=== PATIENT | female | born 1990 ===

== ENCOUNTER 2016-07-28 11:28 | Inpatient (IN) | payer MEDICAID ==
[2016-07-28] MEDS ORDERED: Sodium Chloride 0.9% 1,000 ML IV STA ×2 (11:52→12:33)
--- NOTE | 2016-07-28 12:02 | ED PDOC ---
HPI: SOB/CHF/COPD Time Seen by Provider: 07/28/16 11:43 Chief Complaint (Nursing): Shortness Of Breath Chief Complaint (Provider): Shortness Of Breath History Per: Patient History/Exam Limitations: no limitations Onset/Duration Of Symptoms: Hrs Current Symptoms Are (Timing): Still Present Additional Complaint(s): 25 y/o female with a past medical history of diabetes who presents to the emergency department with a complaint of shortness of breath since this morning. Associated with generalized weakness and frequent urination. Denies chest pain, cough, runny nose, nausea, abdominal pain, vomiting, diarrhea, fever , and leg pain. Of note, patient states she treats diabetes with Novolog insulin but has not used insulin for the last 3 months because her insurance was terminated. Reports she was in ICU in March. PMD: Dr. Mally Alcaraz MD Past Medical History Reviewed: Historical Data, Nursing Documentation, Vital Signs Vital Signs: Last Vital Signs Temp 98.1 F 07/28/16 11:37 Pulse 112 H 07/28/16 11:37 Resp 22 07/28/16 11:37 BP 111/69 07/28/16 11:37 Pulse Ox 98 07/28/16 12:05 - Medical History PMH: Diabetes Denies: HIV, Chronic Kidney Disease - Surgical History Surgical History: Appendectomy (1995) - Family History Family History: States: Unknown Family Hx - Immunization History Hx Tetanus Toxoid Vaccination: No Hx Influenza Vaccination: No Hx Pneumococcal Vaccination: No - Home Medications Home Medications: Ambulatory Orders Medication Instructions Recorded Insulin Aspart [Novolog] 2 units SC TID #100 ml 04/27/16 Insulin Detemir [Levemir] 5 unit SC QAM #100 unit 04/27/16 Insulin Detemir [Levemir] 7 unit SC QPM #100 unit 04/27/16 - Allergies Allergies/Adverse Reactions: Allergies Allergy/AdvReac Type Severity Reaction Status Date / Time No Known Allergies Allergy Verified 07/28/16 11:37 Review of Systems ROS Statement: Except As Marked, All Systems Reviewed And Found Negative Constitutional: Positive for: Weakness (generalized). Negative for: Fever ENT: Negative for: Nose Discharge Cardiovascular: Negative for: Chest Pain Respiratory: Positive for: Shortness of Breath. Negative for: Cough Gastrointestinal: Negative for: Nausea, Vomiting, Abdominal Pain, Diarrhea Genitourinary Female: Positive for: Frequency Musculoskeletal: Negative for: Leg Pain Physical Exam - Reviewed Nursing Documentation Reviewed: Yes Vital Signs Reviewed: Yes - Physical Exam Appears: Positive for: Non-toxic, Uncomfortable Head Exam: Positive for: ATRAUMATIC, NORMOCEPHALIC Skin: Positive for: Normal Color, Warm, Dry Eye Exam: Positive for: Normal appearance. Negative for: Conjunctival injection ENT: Positive for: Normal ENT Inspection. Negative for: Pharyngeal Erythema Cardiovascular/Chest: Positive for: Regular Rate, Rhythm. Negative for: Murmur Respiratory: Positive for: Normal Breath Sounds. Negative for: Accessory Muscle Use, Respiratory Distress Gastrointestinal/Abdominal: Positive for: Normal Exam, Soft. Negative for: Tenderness Extremity: Positive for: Normal ROM. Negative for: Pedal Edema, Swelling Neurologic/Psych: Positive for: Alert, Oriented - Laboratory Results Result Diagrams: 07/28/16 12:00 07/28/16 12:00 Interpretation Of Abn Labs: 7.06 vbg ph, AG 28. elevated glucose - ECG ECG: Positive for: Interpreted By Me, Viewed By Me ECG Rhythm: Positive for: Sinus Tachycardia O2 Sat by Pulse Oximetry: 98 (RA) Pulse Ox Interpretation: Normal - Radiology X-Ray: Read By Radiologist X-Ray Interpretation: No Acute Disease - Progress ED Course And Treament: 1411: Stable. AAOx3. Will admit ICU. DKA. Dr. Varela aware and will admit. Dr. Menjivar aware and will admit. Pt. not septic despite lactate elevation. Is likely dka related. - Critical Care Total Time (In Min): 30 Documented Critical Care: Time excludes all time spent performint seperately billable procedures Medical Decision Making Medical Decision Making: Time: 11:43 Initial impression: Initial plan: --Venous Blood Gas Shock --COMP Metabolic Panel --Lipase Stat --Troponin I Stat --ED Urine (POC) --Urine DIP --CBC w/ differential --Partial Thromboplastin Time (COAG) --Prothrombin time (COAG) --Chest Portable (RAD) --Sodium Chloride 1,000 ml IV 1,000 mls/hr --Zofran 4 mg IV --Blood Culture Stat --Urine Culture Stat --Urinalysis Stat --AccuCheck: 493 --Revaluation Scribe Attestation: Documented by Deisi Mason, acting as a scribe for Nick Sears MD. Provider Scribe Attestation: All medical record entries made by the Scribe were at my direction and personally dictated by me. I have reviewed the chart and agree that the record accurately reflects my personal performance of the history, physical exam, medical decision making, and the department course for this patient. I have also personally directed, reviewed, and agree with the discharge instructions and disposition. Disposition - Clinical Impression Clinical Impression: DKA (diabetic ketoacidosis) - Patient ED Disposition Is Patient to be Admitted: Yes Doctor Will See Patient In The: Hospital Counseled Patient/Family Regarding: Studies Performed, Diagnosis - Disposition Disposition Time: 14:12 Condition: SERIOUS - Pt Status Changed To: Hospital Disposition Of: Inpatient - Admit Certification Admit to Inpatient:: After my assessment, the patient will require hospitalization for at least two midnights. This is because of the severity of symptoms shown, intensity of services needed, and/or the medical risk in this patient being treated as an outpatient. - POA Present On Arrival: Poor Glycemic Control
[2016-07-28 12:24] LABS: BASO % 0.7 % (0.0-2.0); EOS % 0.2 % (0.0-4.0); HEMATOCRIT 40.6 % (34.0-47.0); LYMPH % 39.4 % (20.0-40.0); MEAN CELL VOLUME 89.1 fl (81.0-99.0); MEAN CORPUSCULAR HEMOGLOBIN 30.1 pg (27.0-31.0); MEAN CORPUSCULAR HGB CONC 33.7 g/dL (33.0-37.0); MONO # 0.3 K/uL (0.0-0.8); MONO % 5.5 % (0.0-10.0); NEUT # 2.8 K/uL (1.8-7.0); NEUT % 54.2 % (50.0-75.0); NRBC % 0.2 % (0.0-0.0); RED CELL DISTRIBUTION WIDTH 12.4 % (11.5-14.5); WHITE BLOOD COUNT 5.2 K/uL (4.8-10.8)
[2016-07-28 12:29] LABS: VENOUS BLOOD GAS BASE EXCESS -17.4 mmol/L (0.0-2.0); VENOUS BLOOD GAS PCO2 44 mmHg (40-60); VENOUS BLOOD PH 7.06 (7.32-7.43)
[2016-07-28] MEDS ORDERED: Insulin Regular 100 units/ml IV STA (12:33)
[2016-07-28] MEDS ORDERED: Glucagon Recombinant 1 mg Inj IM PRN (12:33)
[2016-07-28] MEDS ORDERED: Dextrose 50% SYRINGE Inj (50 ml) IV PRN (12:33)
[2016-07-28 12:41] LABS: ALKALINE PHOSPHATASE 200 U/L (38-126); ALT/SGPT 28 U/L (9-52); AST/SGOT 36 U/L (14-36); BILIRUBIN,TOTAL 0.5 mg/dl (0.2-1.3); BLOOD UREA NITROGEN 15 mg/dl (7-17); CALCIUM 9.7 mg/dL (8.4-10.2); CARBON DIOXIDE 13 mmol/L (22-30); CHLORIDE 95 mmol/L (98-107); GFR AFRICAN-AMERICAN > 60; LIPASE 126 U/L (23-300); POTASSIUM 4.2 MMOL/L (3.6-5.0); SODIUM 136 mmol/l (132-148); TOTAL PROTEIN 7.2 G/DL (6.3-8.2)
[2016-07-28 12:44] LABS: GLUCOSE,RANDOM 555 mg/dL (65-105)
[2016-07-28 12:52] LABS: PARTIAL THROMBOPLASTIN TIME 23.9 SECONDS (23.3-32.5)
[2016-07-28] MEDS ORDERED: Insulin Regular 100 units/ml ONE (13:07)
[2016-07-28 13:29] LABS: RBC URINE 8 /hpf (0-3); URINE BACTERIA FEW (<OCC); URINE BILIRUBIN NEGATIVE (NEGATIVE); URINE BLOOD NEGATIVE (NEGATIVE); URINE COLOR YELLOW (YELLOW); URINE GLUCOSE (UA) >=500 mg/dL (Normal); URINE KETONE 80 mg/dL (NEGATIVE); URINE LEUKOCYTE ESTERASE TRACE Leu/uL (Negative); URINE PROTEIN NEGATIVE (NEGATIVE); URINE UROBILINOGEN 0.2-1.0 mg/dL (0.2-1.0); WBC URINE 12 /hpf (0-5)
--- NOTE | 2016-07-28 13:40 | RAD ---
HISTORY: dyspnea COMPARISON: 04/26/2016. FINDINGS: LUNGS: No active pulmonary disease. PLEURA: No significant pleural effusion identified, no pneumothorax apparent. CARDIOVASCULAR: Normal. OSSEOUS STRUCTURES: No significant abnormalities. VISUALIZED UPPER ABDOMEN: Normal. OTHER FINDINGS: None. IMPRESSION: No active disease.
[2016-07-28] MEDS: Potassium Chl 20 mEq in NS 1,000 ML IV SCH ×2 (15:21→22:15)
[2016-07-28 16:27] LABS: BLOOD UREA NITROGEN 13 mg/dl (7-17); CALCIUM 8.5 mg/dL (8.4-10.2); CARBON DIOXIDE 22 mmol/L (22-30); CHLORIDE 104 mmol/L (98-107); GFR AFRICAN-AMERICAN > 60; GLUCOSE,RANDOM 252 mg/dL (65-105); MAGNESIUM 1.4 MG/DL (1.6-2.3); PHOSPHOROUS 2.2 mg/dl (2.5-4.5); POTASSIUM 3.7 MMOL/L (3.6-5.0); SODIUM 139 mmol/l (132-148)
[2016-07-28 16:55] LABS: THYROID STIMULATING HORMONE 0.42 mIU/ML (0.46-4.68)
[2016-07-28] MEDS: Magnesium Oxide 400 mg Tab UD PO SCH (18:45)
[2016-07-28] MEDS ORDERED: Insulin Detemir 100 Units/ml Inj SC STA (18:47)
[2016-07-28 19:12] VITALS: BMI 24.7
--- NOTE | 2016-07-28 20:47 | CP.PCM.HP ---
History of Present Illness - History of Present Illness History of Present Illness: CC: SOB History of Present Illness: 25 y/o female with a past medical history of diabetes who presents to the emergency department with a complaint of shortness of breath since this morning. Associated with generalized weakness and frequent urination. Denies chest pain, cough, runny nose, nausea, abdominal pain, vomiting, diarrhea, fever , and leg pain. Patient states she treats diabetes with Novolog insulin but has not used insulin for the last 3 months because her insurance was terminated. Reports she was in ICU in March. Present on Admission - Present on Admission Any Indicators Present on Admission: Yes History of DVT/PE: No History of Uncontrolled Diabetes: Yes Urinary Catheter: No Decubitus Ulcer Present: No Review of Systems - Review of Systems All systems: reviewed and no additional remarkable complaints except Past Patient History - Past Medical History & Family History Past Medical History?: Yes Past Family History: Reviewed and not pertinent - Past Social History Smoking Status: Never Smoked Alcohol: Social Drugs: Denies - CARDIAC Hx Cardiac Disorders: No - PULMONARY Hx Respiratory Disorders: No - NEUROLOGICAL Hx Neurological Disorder: No - HEENT Hx HEENT Problems: Yes (blurry vision on right eye since 4 days ago) - RENAL Hx Chronic Kidney Disease: No - ENDOCRINE/METABOLIC Hx Endocrine Disorders: Yes Hx Diabetes Mellitus Type 1: Yes (H/O DKA ) - HEMATOLOGICAL/ONCOLOGICAL Hx Human Immunodeficiency Virus (HIV): No - INTEGUMENTARY Hx Dermatological Problems: No - MUSCULOSKELETAL/RHEUMATOLOGICAL Hx Falls: No - GASTROINTESTINAL Hx Gastrointestinal Disorders: No - GENITOURINARY/GYNECOLOGICAL Hx Genitourinary Disorders: No - PSYCHIATRIC Hx Substance Use: No - SURGICAL HISTORY Hx Appendectomy: Yes (1995) - ANESTHESIA Hx Anesthesia: Yes Hx Anesthesia Reactions: No Hx Malignant Hyperthermia: No Meds Allergies/Adverse Reactions: Allergies Allergy/AdvReac Type Severity Reaction Status Date / Time No Known Allergies Allergy Verified 07/28/16 11:37 Physical Exam - Constitutional Appears: Well, No Acute Distress - Head Exam Head Exam: ATRAUMATIC, NORMAL INSPECTION, NORMOCEPHALIC - Eye Exam Eye Exam: EOMI, Normal appearance, PERRL Pupil Exam: NORMAL ACCOMODATION, PERRL - ENT Exam ENT Exam: Mucous Membranes Moist, Normal Exam - Neck Exam Neck exam: Positive for: Full Rom, Normal Inspection - Respiratory Exam Respiratory Exam: Clear to Auscultation Bilateral, NORMAL BREATHING PATTERN - Cardiovascular Exam Cardiovascular Exam: REGULAR RHYTHM, +S1, +S2 - GI/Abdominal Exam GI & Abdominal Exam: Normal Bowel Sounds, Soft. absent: Tenderness - Extremities Exam Extremities exam: Positive for: normal capillary refill, normal inspection - Back Exam Back exam: NORMAL INSPECTION - Neurological Exam Neurological exam: Abnormal Gait, Alert, CN II-XII Intact, Normal Gait, Oriented x3, Reflexes Normal - Psychiatric Exam Psychiatric exam: Normal Affect, Normal Mood - Skin Skin Exam: Dry, Intact, Normal Color, Warm Results - Vital Signs Recent Vital Signs: Last Vital Signs Temp 98.2 F 07/28/16 20:10 Pulse 87 07/28/16 20:10 Resp 17 07/28/16 20:10 BP 102/54 L 07/28/16 20:10 Pulse Ox 99 07/28/16 20:10 - Labs Result Diagrams: 07/28/16 12:00 07/28/16 16:00 Labs: Laboratory Results - last 24 hr 07/28/16 07/28/16 07/28/16 15:09 16:00 16:39 Sodium 139 Potassium 3.7 Chloride 104 Carbon Dioxide 22 Anion Gap 16 BUN 13 Creatinine 0.4 L Est GFR ( Amer) > 60 Est GFR (Non-Af Amer) > 60 POC Glucose (mg/dL) 259 H 223 H Random Glucose 252 H Lactic Acid 2.5 H Calcium 8.5 Phosphorus 2.2 L Magnesium 1.4 L TSH 3rd Generation 0.42 L 07/28/16 18:41 Sodium Potassium Chloride Carbon Dioxide Anion Gap BUN Creatinine Est GFR ( Amer) Est GFR (Non-Af Amer) POC Glucose (mg/dL) 188 H Random Glucose Lactic Acid Calcium Phosphorus Magnesium TSH 3rd Generation Assessment & Plan (1) Metabolic acidosis Assessment and Plan: Dehydration, Hyperglycemia Mix Lactic Acidosis and DKA Admit to ICU DKA Protocol with Insulin and IVF with Electrolyte Monitoring Status: Acute Priority: High
[2016-07-28] MEDS ORDERED: Insulin Detemir 100 Units/ml Inj SC SCH ×2 (22:00)
[2016-07-29] MEDS: Potassium Chl 20 mEq in NS 1,000 ML IV SCH (05:00)
[2016-07-29 06:36] LABS: HEMATOCRIT 37.2 % (34.0-47.0); MEAN CELL VOLUME 88.6 fl (81.0-99.0); MEAN CORPUSCULAR HEMOGLOBIN 29.5 pg (27.0-31.0); MEAN CORPUSCULAR HGB CONC 33.3 g/dL (33.0-37.0); RED CELL DISTRIBUTION WIDTH 12.4 % (11.5-14.5); WHITE BLOOD COUNT 5.7 K/uL (4.8-10.8)
[2016-07-29 06:42] LABS: ALB/GLOB RATIO 0.9 (1.0-2.1); ALKALINE PHOSPHATASE 95 U/L (38-126); ALT/SGPT 29 U/L (9-52); AST/SGOT 29 U/L (14-36); BILIRUBIN,TOTAL 0.3 mg/dl (0.2-1.3); BLOOD UREA NITROGEN 11 mg/dl (7-17); CALCIUM 8.4 mg/dL (8.4-10.2); CARBON DIOXIDE 27 mmol/L (22-30); CHLORIDE 107 mmol/L (98-107); GFR AFRICAN-AMERICAN > 60; GLUCOSE,RANDOM 96 mg/dL (65-105); POTASSIUM 3.2 MMOL/L (3.6-5.0); SODIUM 143 mmol/l (132-148); TOTAL PROTEIN 5.7 G/DL (6.3-8.2)
[2016-07-29] MEDS ORDERED: Insulin Lispro (humaLOG) 100 Units/ml Inj SC SCH (07:30)
[2016-07-29] MEDS ORDERED: Potassium Chloride 20 mEq ER Tab PO ONE (07:36)
[2016-07-29] MEDS: Magnesium Oxide 400 mg Tab UD PO SCH (09:07)
[2016-07-29] MEDS: Potassium Ch 20mEq in D5-1/2NS 1,000 ML IV SCH (10:46)
[2016-07-29] MEDS: Insulin Lispro (humaLOG) 100 Units/ml Inj SC SCH ×5 (12:16→21:30)
--- NOTE | 2016-07-29 15:38 | CON ---
DATE: 07/29/2016 ICU room 426 HISTORY OF PRESENT ILLNESS: This is a 25-year-old type 1 insulin-dependent diabetic, who apparently ran out of her insulin because of insurance constraints, and has now been admitted in diabetic ketoac idosis and dehydration, and is being referred now for diabetic evaluation and management. PAST MEDICAL HISTORY: As mentioned above, history of type 1 insulin-dependent diabetes since child od, and has been on different insulin injections because of insurance changes, and currently has been on Levemir given as 5 units in the morning and 7 units at bedtime, with NovoLog given at a variable dose of 2-4 units t.i.d. with meals, depending on her meal portions. FAMILY HISTORY: Positive for diabetes and hypertension. SOCIAL HISTORY: The patient has supportive family. No known substance use. REVIEW OF SYSTEMS: As mentioned above, admits to generalized body weakness, with easy fatigability a nd tiredness, and suboptimal energy level. Also admits to episodic dizziness and lightheadedness, wo rse on the day of admission. No chest pains or palpitations, but admits to progressive shortness of breath, especially on exertion. Her oral intake has been variable with nausea, dyspepsia, and episod ic vomiting episodes. Also admits to marked polyuria, nocturia, polydipsia, and about 10 pounds or s o weight loss. PHYSICAL EXAMINATION: GENERAL: female, in no apparent distress. VITAL SIGNS: Blood pressure of 140/80, pulse of 70 beats per minute and regular, temperature 98, res pirations 20. Height is 5 foot 5 inches, weight is 149 pounds. HEENT: Head normocephalic. Eyes anicteric, with pink conjunctivae. Fundoscopy not possible at this time. Ears, nose, and throat otherwise normal. NECK: Supple. Thyroid gland is normal size. No carotid bruits. No cervical adenopathy. CARDIOPULMONARY: Some adynamic precordium. S1, S2 is rapid and regular. LUNGS: Clear to auscultation. ABDOMEN: Flat, soft, with positive bowel sounds. EXTREMITIES: No peripheral edema. Pulses are +2 bilaterally. LABORATORY DATA: Her chemistries showed BUN of 15, sodium 136, potassium 4.2, chloride 95, CO2 was 1 3, glucose 555, and creatinine 0.5. Hemoglobin of 13.7, hematocrit of 40. ASSESSMENT: This is a 25-year-old female with uncontrolled and decompensated type 1 insulin-dependen t diabetes, presenting here with diabetic ketoacidosis and dehydration, and is also related to drug o mission from insurance constraints, as noted thereof. 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 We will lower the basal insulin to Lev devan given as 20 units subQ at bedtime daily, to start tonight. We will also lower the Humalog to 6 units subQ t.i.d. before meals, to start at lunchtime today as ordered. We will modify the coverage scale to a very low dose algorithm, modified accordingly using Humalog insulin as ordered, and this w ill be done before meals and at bedtime as given. A hemoglobin A1c will be done to confirm her prior glycemic control, and baseline thyroid function studies will be ordered. We will obtain serial chem istries and supplement accordingly as needed. We will also continue the vigorous IV hydration to rep lenish the lost fluid and electrolytes accordingly. We will consult our diabetic nurse educator to bridget lyn diabetic education and dietary instructions, also with our certified home health aide for healthier food c hoices as noted. We will follow and advise accordingly. Rosalba Puri MD cc: [id number] TT: 07/29/2016 15:37:44 Confirmation # [id number] Dictation # [id number] vn
[2016-07-29 16:15] LABS: BLOOD UREA NITROGEN 11 mg/dl (7-17); CALCIUM 8.3 mg/dL (8.4-10.2); CARBON DIOXIDE 26 mmol/L (22-30); CHLORIDE 104 mmol/L (98-107); GFR AFRICAN-AMERICAN > 60; GLUCOSE,RANDOM 159 mg/dL (65-105); POTASSIUM 4.3 MMOL/L (3.6-5.0); SODIUM 140 mmol/l (132-148)
[2016-07-29] MEDS: Alum-Mag Hydrox-Simethicone Susp (30 mL) PO PRN (19:42)
[2016-07-29] MEDS ORDERED: Insulin Detemir 100 Units/ml Inj SC SCH (22:00)
--- NOTE | 2016-07-29 23:26 | CP.PCM.PN ---
Subjective - Date & Time of Evaluation Date of Evaluation: 07/29/16 Time of Evaluation: 12:25 - Subjective Subjective: States feeling better. Objective - Vital Signs/Intake and Output Vital Signs (last 24 hours): Temp Pulse Resp BP Pulse Ox 98.3 F 85 17 110/67 99 07/29/16 16:00 07/29/16 16:00 07/29/16 16:00 07/29/16 16:00 07/29/16 16:00 Intake and Output: 07/29/16 07/30/16 18:59 06:59 Intake Total 120 180 Balance 120 180 - Medications Medications: Current Medications Al Hydrox/Mg Hydrox/Simethicone (Maalox Plus 30 Ml) 30 ml PO Q6 PRN PRN Reason: Indigestion / Heartburn Last Admin: 07/29/16 19:42 Dose: 30 ml Potassium Chloride/Dextrose/Sod Cl (Potassium Chl 20 Meq In D5-1/2ns) 1,000 mls @ 60 mls/hr IV .[id number] [facility] Stop: 07/30/16 10:31 Last Admin: 07/29/16 10:46 Dose: 60 mls/hr Insulin Detemir (Levemir) 20 units SC HS [facility] Last Admin: 07/29/16 22:10 Dose: 20 units Insulin Human Lispro (Humalog) 6 units SC AC [facility] Last Admin: 07/29/16 17:48 Dose: 6 u Insulin Human Lispro (Humalog) 0 units SC ACHS [facility] PRN Reason: Protocol Last Admin: 07/29/16 17:02 Dose: Not Given Magnesium Oxide (Mag-Ox) 400 mg PO DAILY [facility] Last Admin: 07/29/16 09:07 Dose: 400 mg - Labs Labs: 07/29/16 05:30 07/29/16 15:30 PT 9.7 SECONDS (9.6-11.2) 07/28/16 12:00 INR 0.93 (0.92-1.08) 07/28/16 12:00 APTT 23.9 SECONDS (23.3-32.5) 07/28/16 12:00 - Constitutional Appears: Well - Head Exam Head Exam: ATRAUMATIC, NORMAL INSPECTION, NORMOCEPHALIC - Eye Exam Eye Exam: EOMI, Normal appearance, PERRL Pupil Exam: NORMAL ACCOMODATION, PERRL - ENT Exam ENT Exam: Mucous Membranes Moist, Normal Exam - Neck Exam Neck Exam: Full ROM, Normal Inspection. absent: Lymphadenopathy - Respiratory Exam Respiratory Exam: Clear to Ausculation Bilateral, NORMAL BREATHING PATTERN - Cardiovascular Exam Cardiovascular Exam: REGULAR RHYTHM, +S1, +S2. absent: Murmur - GI/Abdominal Exam GI & Abdominal Exam: Soft, Normal Bowel Sounds. absent: Tenderness - Extremities Exam Extremities Exam: Full ROM, Normal Capillary Refill, Normal Inspection. absent : Joint Swelling, Pedal Edema - Back Exam Back Exam: NORMAL INSPECTION - Neurological Exam Neurological Exam: Alert, Awake, CN II-XII Intact, Normal Gait, Oriented x3 - Psychiatric Exam Psychiatric exam: Normal Affect, Normal Mood - Skin Skin Exam: Dry, Intact, Normal Color, Warm Assessment and Plan (1) Metabolic acidosis Assessment & Plan: Improving Dehydration, Hyperglycemia Mix Lactic Acidosis and DKA Admit to ICU DKA Protocol with Insulin and IVF with Electrolyte Monitoring Status: Acute
[2016-07-30] MEDS: Alum-Mag Hydrox-Simethicone Susp (30 mL) PO PRN (02:15)
[2016-07-30] MEDS: Potassium Ch 20mEq in D5-1/2NS 1,000 ML IV SCH (04:34)
[2016-07-30 05:23] VITALS: O2SAT 99
[2016-07-30 07:30] LABS: ALB/GLOB RATIO 0.9 (1.0-2.1); ALKALINE PHOSPHATASE 97 U/L (38-126); ALT/SGPT 24 U/L (9-52); AST/SGOT 37 U/L (14-36); BILIRUBIN,TOTAL 0.5 mg/dl (0.2-1.3); BLOOD UREA NITROGEN 10 mg/dl (7-17); CALCIUM 8.2 mg/dL (8.4-10.2); CARBON DIOXIDE 23 mmol/L (22-30); CHLORIDE 104 mmol/L (98-107); GFR AFRICAN-AMERICAN > 60; GLUCOSE,RANDOM 196 mg/dL (65-105); PHOSPHOROUS 1.9 mg/dl (2.5-4.5); POTASSIUM 4.1 MMOL/L (3.6-5.0); SODIUM 139 mmol/l (132-148); TOTAL PROTEIN 5.9 G/DL (6.3-8.2)
[2016-07-30] MEDS: Insulin Lispro (humaLOG) 100 Units/ml Inj SC SCH ×4 (07:40→12:48)
[2016-07-30] MEDS: Magnesium Oxide 400 mg Tab UD PO SCH (08:33)
--- NOTE | 2016-07-30 13:57 | PN ---
DATE: 07/29/2016 CRITICAL CARE PROGRESS NOTE The patient is in ICU, bed 426. TIME SPENT: 25 minutes. Seen and evaluated at the bedside. Events since admission reviewed. FAMILY MEDICAL, PAST MEDICAL, SURGICAL, FAMILY, SOCIAL HISTORY: Reviewed and remain unchanged. A 25-year-old female with type 1 diabetes, admitted with DKA noncompliant with insulin prior to admis mike, status post insulin drip anion gap resolved, improved control of blood sugar, uneventful overni ght. This morning, alert, awake, follows commands appropriately. Tolerating p.o. feeds. PHYSICAL EXAMINATION: VITAL SIGNS: Temperature 97.9, heart rate 85 regular, respiratory rate 15, blood pressure 94/70. HEAD, EYES, EARS, NOSE, AND THROAT: Unremarkable. NECK: Supple. CHEST: Bilateral breath sounds. Clear to auscultation. HEART: Rhythm regular. S1, S2 normal intensity. No S3, S4 gallop. No audible murmur. ABDOMEN: Bowel sounds present, soft. Liver and spleen not palpable. Bladder not distended. EXTREMITIES: Unremarkable. NEUROLOGIC: Nonfocal. LABORATORY DATA: WBC 5.7, hemoglobin 12.4, hematocrit 37.2, platelet count at 266. PT 9.7, INR 0.93 , PTT 23.9. SMA-7: Sodium 143, potassium 3.2, chloride 107, CO2 of 27, blood urea nitrogen 11, crea tinine 0.5, glucose 53. Lactic acid 2.5, magnesium 2.2. Urine exam: RBC 8, bacteria few, WBC 12. Microbiology: No growth reported. Chest x-ray: Unremarkable. IMPRESSION: 1. Status post diabetic ketoacidosis. 2. Hypokalemic, supplement potassium. 3. Diabetes mellitus. Noncompliant with insulin. Continue Levemir 22 units subQ at night, bolus in sulin with a meal, lispro 8 units. Adjust the dose as needed for optimal control of blood sugar. Can be transferred to a regular floor. Supplement potassium. Discussed with primary medical doctor. Joe Menjivar MD cc: [id number] TT: 07/29/2016 11:31:56 Confirmation # [id number] Dictation # [id number] olga 07/30/2016 12:57:08
[2016-07-30 14:09] VITALS: TEMP 98.3
--- NOTE | 2016-07-30 15:26 | PN ---
DATE: 07/30/2016 ROOM: [address] [place] [id number] This is a 25-year-old female with recent uncontrolled type 1 insulin-dependent diabetes, presenting h ere with diabetic ketoacidosis and dehydration and has received intensive insulin therapy with an ins ulin drip infusion, which has since then been discontinued at this time. She also received vigorous IV hydration as given and noted. Her latest chemistries showed a BUN of 10, sodium 139, potassium 4.1, chloride 104, CO2 23, glucose 1 96 and creatinine 0.4. Her hemoglobin A1c is 16.7%, which is extremely elevated and indicative of ve ry poor outpatient metabolic control of her diabetic condition. She apparently ran out of her insuli n vials and has since then been off medications for almost 3-4 months. Her glucose levels have range d from 167-172 today as noted. ASSESSMENT: This is a 25-year-old female with uncontrolled and decompensated type 1 insulin-dependen t diabetes, presenting here with diabetic ketoacidosis and dehydration related to very poor adherence to her insulin regimen and apparent drug omission because of financial constraints. PLAN OF MANAGEMENT: As discussed with the patient and the staff, we will continue her current insuli n regimen, which is a more physiologic basal and bolus drug combination as ordered. We will continue her Humalog given as 6 units subQ t.i.d. before meals and Levemir given as 20 units subQ at bedtime daily as ordered. We will titrate incrementally as indicated to optimize metabolic control. We will obtain serial chemistries and supplement accordingly as needed. We will follow. Rosalba Puri MD cc: [id number] TT: 07/30/2016 15:26:07 Confirmation # [id number] Dictation # [id number]
[2016-07-30 16:33] VITALS: BP 112/66; PULSE 73; RESP 20
[2016-07-30 21:57] LABS: CORTISOL AM 16.4 ug/dL (4.46-22.7)
--- NOTE | 2016-07-30 23:44 | CP.PCM.DIS ---
Provider - Provider Date of Admission: 07/28/16 14:04 Attending physician: Jack Varela MD Time Spent in preparation of Discharge (in minutes): 25 Diagnosis - Discharge Diagnosis (1) Metabolic acidosis Status: Acute Priority: High Hospital Course - Lab Results Lab Results: Micro Results 07/28/16 17:20 Blood-Venous Blood Culture - Preliminary NO GROWTH AFTER 48 HOURS 07/28/16 15:00 Naris MRSA Culture (Admit) - Final MRSA NOT DETECTED Most Recent Lab Values WBC 5.7 K/uL (4.8-10.8) 07/29/16 05:30 RBC 4.20 Mil/uL (3.80-5.20) 07/29/16 05:30 Hgb 12.4 g/dL (12.0-16.0) 07/29/16 05:30 Hct 37.2 % (34.0-47.0) 07/29/16 05:30 MCV 88.6 fl (81.0-99.0) 07/29/16 05:30 MCH 29.5 pg (27.0-31.0) 07/29/16 05:30 MCHC 33.3 g/dL (33.0-37.0) 07/29/16 05:30 RDW 12.4 % (11.5-14.5) 07/29/16 05:30 Plt Count 266 K/uL (130-400) 07/29/16 05:30 MPV 9.0 fl (7.2-11.7) 07/28/16 12:00 Neut % (Auto) 54.2 % (50.0-75.0) 07/28/16 12:00 Lymph % (Auto) 39.4 % (20.0-40.0) 07/28/16 12:00 [place] % (Auto) 5.5 % (0.0-10.0) 07/28/16 12:00 Eos % (Auto) 0.2 % (0.0-4.0) 07/28/16 12:00 Baso % (Auto) 0.7 % (0.0-2.0) 07/28/16 12:00 Neut # 2.8 K/uL (1.8-7.0) 07/28/16 12:00 Lymph # 2.0 K/uL (1.0-4.3) 07/28/16 12:00 [place] # 0.3 K/uL (0.0-0.8) 07/28/16 12:00 Eos # 0.0 K/uL (0.0-0.7) 07/28/16 12:00 Baso # 0.0 K/uL (0.0-0.2) 07/28/16 12:00 PT 9.7 SECONDS (9.6-11.2) 07/28/16 12:00 INR 0.93 (0.92-1.08) 07/28/16 12:00 APTT 23.9 SECONDS (23.3-32.5) 07/28/16 12:00 pO2 73 mm/Hg (30-55) H 07/28/16 12:15 VBG pH 7.06 (7.32-7.43) L* 07/28/16 12:15 VBG pCO2 44 mmHg (40-60) 07/28/16 12:15 VBG HCO3 11.0 mmol/L 07/28/16 12:15 VBG Total CO2 13.9 mmol/L (22-28) L 07/28/16 12:15 VBG O2 Sat (Calc) 93.8 % (40-65) H 07/28/16 12:15 VBG Base Excess -17.4 mmol/L (0.0-2.0) L 07/28/16 12:15 Sodium 118.0 mmol/L (132-148) L* 07/28/16 12:15 Chloride 92.0 mmol/L (98-107) L 07/28/16 12:15 Glucose 553 mg/dL (65-105) H* D 07/28/16 12:15 Lactate 9.4 mmol/L (0.7-2.1) H* 07/28/16 12:15 FiO2 21.0 % 07/28/16 12:15 Blood Gas Comments Hand deliverd 07/28/16 12:15 Crit Value Called To Dr elke bautista 07/28/16 12:15 Crit Value Called By 162 07/28/16 12:15 Crit Value Read Back Y 07/28/16 12:15 Blood Gas Notified Time 1229 07/28/16 12:15 Sodium 139 mmol/l (132-148) 07/30/16 06:58 Potassium 4.1 MMOL/L (3.6-5.0) 07/30/16 06:58 Chloride 104 mmol/L (98-107) 07/30/16 06:58 Carbon Dioxide 23 mmol/L (22-30) 07/30/16 06:58 Anion Gap 16 (10-20) 07/30/16 06:58 BUN 10 mg/dl (7-17) 07/30/16 06:58 Creatinine 0.4 mg/dL (0.7-1.2) L 07/30/16 06:58 Est GFR ( Amer) > 60 07/30/16 06:58 Est GFR (Non-Af Amer) > 60 07/30/16 06:58 POC Glucose (mg/dL) 172 mg/dL (65-110) H 07/30/16 12:05 Random Glucose 196 mg/dL (65-105) H 07/30/16 06:58 Hemoglobin A1c 16.7 % (4.2-6.5) H 07/30/16 06:58 Lactic Acid 2.5 MMOL/L (0.7-2.1) H 07/28/16 16:00 Calcium 8.2 mg/dL (8.4-10.2) L 07/30/16 06:58 Phosphorus 1.9 mg/dl (2.5-4.5) L 07/30/16 06:58 Magnesium 1.4 MG/DL (1.6-2.3) L 07/28/16 16:00 Total Bilirubin 0.5 mg/dl (0.2-1.3) 07/30/16 06:58 AST 37 U/L (14-36) H D 07/30/16 06:58 ALT 24 U/L (9-52) 07/30/16 06:58 Alkaline Phosphatase 97 U/L (38-126) 07/30/16 06:58 Troponin I < 0.0120 ng/mL (0.00-0.120) 07/28/16 12:00 Total Protein 5.9 G/DL (6.3-8.2) L 07/30/16 06:58 Albumin 2.8 g/dL (3.5-5.0) L 07/30/16 06:58 Globulin 3.1 gm/dL (2.2-3.9) 07/30/16 06:58 Albumin/Globulin Ratio 0.9 (1.0-2.1) L 07/30/16 06:58 Lipase 126 U/L (23-300) 07/28/16 12:00 TSH 3rd Generation 0.42 mIU/ML (0.46-4.68) L 07/28/16 16:00 Cortisol AM Sample 16.4 ug/dL (4.46-22.7) 07/30/16 06:58 Urine Color Yellow (YELLOW) 07/28/16 13:10 Urine Clarity Cloudy (Clear) 07/28/16 13:10 Urine pH 6.0 (5.0-8.0) 07/28/16 13:10 Ur Specific Logan 1.028 (1.003-1.030) 07/28/16 13:10 Urine Protein Negative mg/dL (NEGATIVE) 07/28/16 13:10 Urine Glucose (UA) >=500 mg/dL (Normal) 07/28/16 13:10 Urine Ketones 80 mg/dL (NEGATIVE) 07/28/16 13:10 Urine Blood Negative (NEGATIVE) 07/28/16 13:10 Urine Nitrate Negative (NEGATIVE) 07/28/16 13:10 Urine Bilirubin Negative (NEGATIVE) 07/28/16 13:10 Urine Urobilinogen 0.2-1.0 mg/dL (0.2-1.0) 07/28/16 13:10 Ur Leukocyte Esterase Trace Leigha/uL (Negative) 07/28/16 13:10 Urine RBC (Auto) 8 /hpf (0-3) H 07/28/16 13:10 Urine Microscopic WBC 12 /hpf (0-5) H 07/28/16 13:10 Ur Squamous Epith Cells 17 /hpf (0-5) H 07/28/16 13:10 Urine Bacteria Few (<OCC) H 07/28/16 13:10 Discharge Exam - Head Exam Head Exam: ATRAUMATIC, NORMAL INSPECTION, NORMOCEPHALIC Discharge Plan - Follow Up Plan Condition: SERIOUS Disposition: HOME/ ROUTINE Instructions: Diabetic Ketoacidosis (DC), Meal Planning with Diabetes Exchanges (DC), Diabetic Ketoacidosis (GEN), Hypokalemia (DC), Hypokalemia (GEN) Additional Instructions: Humalog 6U before breakfast , lunch and dinner Levimir 20U at bedtime test blood sugar before meals and at bedtime. keep a log and bring to MD follow up with qualitative executive researcher Dr Dianne Balderas at [facility] in 2 weeks (md requested by patient) Seek medical attention if any averse symptoms or elevated blood sugars orfrequent low blood sugars or for any other concerns
--- NOTE | 2016-07-31 10:00 | DS ---
The patient is in ICU, bed 426. TIME SPENT: 35 minutes. The patient is seen and evaluated at the bedside. Events in ER discussed with the ER physician. A 25-year-old female with a history of insulin-requiring diabetes on Lantus insulin and Humalog at [facility]. Due to lack of insurance the patient has been noncompliant with medications and has not had insu pati for about 3 months. Presented to the Emergency Room complaining of increasing shortness of breat h and generalized weakness associated with fever, chills, cough, shortness of breath, abdominal pain, diarrhea. No dysuria. Anyhow, the patient was noted to be in DKA with blood sugar 550, anion gap o f 28, and elevated lactate. Treated with IV insulin bolus, followed by insulin drip, admitted to ICU . REVIEW OF SYSTEMS: As noted. No fever, chills, cough, shortness of breath, chest pain, abdominal pa in, diarrhea, no dysuria. PAST MEDICAL HISTORY: Diabetes mellitus type 1 on insulin. No history of hypothyroidism. Hypertens ion, coronary artery disease, congestive heart failure. PAST SURGICAL HISTORY: Unremarkable. MEDICATIONS: As noted. ALLERGIES: None documented. FAMILY HISTORY: Noncontributory SOCIAL HISTORY: Nonsmoker. No ETOH use, and no recreational drug use. On examination, Thin-built female in no distress, afebrile. VITAL SIGNS: Temperature 97.8, heart rate 72 regular, respiratory rate 18 thoracoabdominal, blood pr essure 126/77, saturating 99%. Intake and output not documented on examination. HEAD, EARS, EYES, NOSE, THROAT: Pupils reactive, conjunctivae pink, sclerae are white. NECK: Supple. Trachea central. CHEST: Bilateral breath sounds. HEART: Rhythm regular. S1, S2 normal. No audible murmur or rub. ABDOMEN: Bowel sounds present, soft. No tenderness. EXTREMITIES: Without edema. NEUROLOGIC EXAMINATION: Nonfocal. LABORATORY DATA: SMA-7: Sodium 136, potassium 4.2, chloride 95, CO2 of 13.9. Blood urea nitrogen 1 5, creatinine 0.5, glucose 555, alkaline phosphatase 200. ALT 28, AST 36. Calcium 9.7, total biliru bin 0.5, total protein 7.2, albumin of 3.7, lipase 126. Urine analysis RBC 8, WBC 12. ABG: pH 7.06 , pCO2 of 44, bicarbonate 11, saturation 93.8% saturation on room air. Urine analysis: RBC 8, WBC 1 2, squamous epithelial cells 17. PT 9.7, INR 0.93, PTT 23.7. WBC 5.2, hemoglobin 13.7, hematocrit 4 0. ASSESSMENT: Diabetic ketoacidosis, noncompliant with diet and medications. No clear evidence of inf arction. precipitating factor for DKA other than noncompliance with the insulin therapy. PLAN: Continue IV hydration, insulin drip. When blood sugar less than 250 change to D5 normal. Con tinue insulin drip until DKA is resolved. Resume home medications including Lantus 22 units at night , HumaLOG 14 units subQ with each meal. DVT and GI prophylaxis. Follow magnesium and phosphorus lev el. Joe Menjivar MD cc: 170 TT: 07/28/2016 21:29:40 07/31/2016 08:56:49
== END 2016-07-30 04:25 | disposition home or self-care (01) | DRG 295 ==
LOC: H.ER 11:28 → H.ERHOLD 14:04 → H.ICU/CCU 14:38 → H.PEDS 07-29 16:02
PROVIDERS: ADMIT Internal Medicine; ATTEND Internal Medicine
DX: E10.10 Type 1 diabetes mellitus with ketoacidosis without coma (principal); I11.0 Hypertensive heart disease with heart failure; I50.9 Heart failure, unspecified; E87.2 Acidosis; E86.0 Dehydration; E87.6 Hypokalemia; Z91.11 Patient's noncompliance with dietary regimen; Z79.4 Long term (current) use of insulin; Z91.14 Patient's other noncompliance with medication regimen; I25.10 Atherosclerotic heart disease of native coronary artery without angina pectoris

== ENCOUNTER 2017-03-24 18:30 | Emergency (ER) | payer MEDICAID ==
[2017-03-24 18:30] VITALS: BMI 24.7
[2017-03-24 18:40] VITALS: BP 113/73; PULSE 110; RESP 16; TEMP 98.8; O2SAT 100
[2017-03-24] MEDS ORDERED: Sodium Chloride 0.9% 1,000 ML IV STA (19:25)
[2017-03-24 19:42] LABS: BASO % 0.2 % (0.0-2.0); EOS # 0.2 K/uL (0.0-0.7); EOS % 2.1 % (0.0-4.0); HEMATOCRIT 41.4 % (34.0-47.0); LYMPH # 0.5 K/uL (1.0-4.3); LYMPH % 6.2 % (20.0-40.0); MEAN CELL VOLUME 89.2 fl (81.0-99.0); MEAN CORPUSCULAR HEMOGLOBIN 29.7 pg (27.0-31.0); MEAN CORPUSCULAR HGB CONC 33.3 g/dL (33.0-37.0); MEAN PLATELET VOLUME 9.1 fl (7.2-11.7); MONO # 0.6 K/uL (0.0-0.8); MONO % 6.8 % (0.0-10.0); NEUT % 84.7 % (50.0-75.0); PLATELET COUNT 236 K/uL (130-400); RED CELL DISTRIBUTION WIDTH 12.5 % (11.5-14.5); WHITE BLOOD COUNT 8.3 K/uL (4.8-10.8)
[2017-03-24 19:50] LABS: ALB/GLOB RATIO 1.2 (1.0-2.1); ALKALINE PHOSPHATASE 92 U/L (38-126); ALT/SGPT 46 U/L (9-52); AST/SGOT 26 U/L (14-36); BILIRUBIN,TOTAL 0.6 mg/dl (0.2-1.3); BLOOD UREA NITROGEN 20 mg/dl (7-17); CALCIUM 8.3 mg/dL (8.4-10.2); CARBON DIOXIDE 25 mmol/L (22-30); CHLORIDE 102 mmol/L (98-107); GFR AFRICAN-AMERICAN > 60; GLUCOSE,RANDOM 199 mg/dL (65-105); LIPASE 34 U/L (23-300); POTASSIUM 4.2 MMOL/L (3.6-5.0); SODIUM 139 mmol/l (132-148); TOTAL PROTEIN 7.1 G/DL (6.3-8.2)
[2017-03-24 20:09] LABS: RBC URINE 53 /hpf (0-3); URINE BILIRUBIN NEGATIVE (NEGATIVE); URINE BLOOD SMALL (NEGATIVE); URINE COLOR YELLOW (YELLOW); URINE GLUCOSE (UA) >=500 mg/dL (Normal); URINE KETONE 20 mg/dL (NEGATIVE); URINE LEUKOCYTE ESTERASE NEG Leu/uL (Negative); URINE PROTEIN 30 mg/dL (NEGATIVE); URINE UROBILINOGEN 0.2-1.0 mg/dL (0.2-1.0); WBC URINE 1 /hpf (0-5)
[2017-03-24 20:17] LABS: ABG ALLEN TEST YES; ARTERIAL BLOOD GAS PH 7.46 (7.35-7.45); ARTERIAL BLOOD GAS PO2 89 mm/Hg (80-100)
[2017-03-24 20:40] LABS: BASOPHIL 1 % (0-2); EOSINOPHIL 3 % (0-7); NEUTROPHIL 73 % (42-75); TOTAL CELLS COUNTED 100
--- NOTE | 2017-03-24 20:47 | ED PDOC ---
HPI:Nausea, Vomiting, Diarrhea Time Seen by Provider: 03/24/17 19:10 Chief Complaint (Nursing): Abdominal Pain Chief Complaint (Provider): Nausea, Vomiting, Diarrhea, and Lower Abdominal Pain History Per: Patient History/Exam Limitations: no limitations Onset/Duration Of Symptoms: Days (x 1 day), Persistent Quality Of Discomfort: Cramping Associated Symptoms: Chills, Nausea, Vomiting, Diarrhea. denies: Fever Additional Complaint(s): Patient is a 26 y/o female diagnosed with Type 1 Diabetes at 11 years of age, with past surgical history of an Appendectomy, who presents to the ED complaining of nausea, vomiting, diarrhea, and lower abdominal cramping pain x 1 day. Patient reports 6 episodes of loose, watery, non-bloody diarrhea and 2 episodes of non-bloody non-bilious vomiting. She also reports experiencing chills but denies any fever. Patient states her had similar symptoms 1 week ago, and states that she has been taking her insulin. She notes her most recent blood sugar measurement was in the 80s. PCP: Does not remember Past Medical History Reviewed: Historical Data, Nursing Documentation, Vital Signs Vital Signs: Last Vital Signs Temp 98.8 F 03/24/17 18:40 Pulse 110 H 03/24/17 18:40 Resp 16 03/24/17 18:40 BP 113/73 03/24/17 18:40 Pulse Ox 100 03/24/17 18:40 - Medical History PMH: Diabetes (Type 1) Denies: HIV, Chronic Kidney Disease - Surgical History Surgical History: Appendectomy (1995) - Family History Family History: States: Unknown Family Hx - Social History Current smoker - smoking cessation education provided: No Alcohol: None Drugs: Denies - Immunization History Hx Tetanus Toxoid Vaccination: No Hx Influenza Vaccination: No Hx Pneumococcal Vaccination: No - Home Medications Home Medications: Ambulatory Orders Medication Instructions Recorded Insulin Detemir [Levemir] 5 unit SC QAM #100 unit 04/27/16 Insulin Detemir [Levemir] 7 unit SC QPM #100 unit 04/27/16 Insulin Aspart [Novolog] 6 units SC TID 11/15/16 Insulin Detemir [Levemir] 20 unit SC DAILY #1 unit 11/15/16 Insulin Lispro [Humalog (Insulin 6 unit SQ TID #1 cartridge 11/15/16 Lispro)] Dicyclomine [Bentyl] 20 mg PO Q12 PRN #20 tab 03/24/17 Ondansetron ODT [Zofran ODT] 4 mg PO Q6 PRN #16 odt 03/24/17 - Allergies Allergies/Adverse Reactions: Allergies Allergy/AdvReac Type Severity Reaction Status Date / Time No Known Allergies Allergy Verified 03/24/17 19:05 Review of Systems ROS Statement: Except As Marked, All Systems Reviewed And Found Negative Constitutional: Positive for: Chills. Negative for: Fever Gastrointestinal: Positive for: Nausea, Vomiting, Abdominal Pain (Lower abdominal cramping), Diarrhea Physical Exam - Reviewed Nursing Documentation Reviewed: Yes Vital Signs Reviewed: Yes - Physical Exam Appears: Positive for: Non-toxic, No Acute Distress Head Exam: Positive for: ATRAUMATIC, NORMOCEPHALIC Skin: Positive for: Normal Color, Warm, Dry Eye Exam: Positive for: Normal appearance, EOMI, PERRL ENT: Positive for: Other (mucous membranes tacky) Neck: Positive for: Normal, Painless ROM, Supple Cardiovascular/Chest: Positive for: Regular Rate, Rhythm. Negative for: Murmur Respiratory: Positive for: Normal Breath Sounds. Negative for: Respiratory Distress Gastrointestinal/Abdominal: Positive for: Soft, Tenderness (mild lower abdmonial tenderness). Negative for: Guarding, Rebound Back: Positive for: Normal Inspection. Negative for: L CVA Tenderness, R CVA Tenderness, Vertebral Tenderness Extremity: Positive for: Normal ROM. Negative for: Pedal Edema, Deformity Neurologic/Psych: Positive for: Alert, Oriented (x3). Negative for: Motor/ Sensory Deficits - Laboratory Results Result Diagrams: 03/24/17 19:30 03/24/17 19:30 - ECG O2 Sat by Pulse Oximetry: 100 (RA) Pulse Ox Interpretation: Normal Medical Decision Making Medical Decision Makin:25 Initial Impression: 26 y/o female with nausea, vomiting, diarrhea, and abdominal pain in setting of Type 1 Diabetes Initial Plan: --Labs --Urine --ED Urine Dipstick --Sodium Chloride 0.9% IV 1,000 mls/hr --Heplock Insertion [IV Insertion (Saline)] --Accucheck [Glucose, Blood, POC] --Urinalysis 19:52 --ABG Shock Panel --Dicyclomine 20 mg PO --Zofran Inj 4 mg IV 21:41 Labs reviewed and revealed no clinically significant abnormalities. Patient reports improvement in symptoms, and has been PO tolerant to clear fluids. Patient stable for discharge, return precaution for provider Clinical Impression: Gastroenteritis Upon provider evaluation patient is medically stable, and requires no further treatment in the ED at this time. Patient will be discharged with Rx for Bentyl 20 mg and Zofran ODT 4 mg. Counseling was provided and all questions were answered regarding diagnosis. There is agreement to discharge plan. Return if symptoms persist or worsen. Scribe Attestation: Documented by Poppy Ewing, acting as a scribe for Fabiano Carter MD Provider Scribe Attestation: All medical record entries made by the Scribe were at my direction and personally dictated by me. I have reviewed the chart and agree that the record accurately reflects my personal performance of the history, physical exam, medical decision making, and the department course for this patient. I have also personally directed, reviewed, and agree with the discharge instructions and disposition. Disposition - Clinical Impression Clinical Impression: Gastroenteritis - Patient ED Disposition Is Patient to be Admitted: No - Disposition Disposition: Routine/Home Disposition Time: 21:41 Condition: IMPROVED Prescriptions: Dicyclomine [Bentyl] 20 mg PO Q12 PRN #20 tab PRN Reason: abdominal pain/diarrhea Ondansetron ODT [Zofran ODT] 4 mg PO Q6 PRN #16 odt PRN Reason: Nausea/Vomiting Instructions: Gastroenteritis (ED) Forms: [employer] (Divehi)
== END 2017-03-24 21:51 | disposition home or self-care (01) ==
LOC: H.ER 18:30
DX: K52.9 Noninfective gastroenteritis and colitis, unspecified (principal); Z79.4 Long term (current) use of insulin
CPT/HCPCS: 36600; 80053; 81003; 81025; 82803; 82948; 83690; 85025; 96360; 99284; J2405; J7040

== ENCOUNTER 2018-06-04 14:14 | Emergency (ER) | payer MEDICAID, OTHER ==
[2018-06-04 14:14] VITALS: BMI 24.7
[2018-06-04] MEDS ORDERED: Sodium Chloride 0.9% 1,000 ML IV SCH (15:00)
--- NOTE | 2018-06-04 15:21 | ED PDOC ---
History of Present Illness History of Present Illness: 27 year old female with a past medical history of Type 1 diabetes who is presenting to the ED for evaluation of flu-like symptoms onset 2-3 days ago. Patient states that she has had body aches, nasal congestion, cough occasionally productive with white sputum and subjective fevers onset last night. She states that she took Ibuprofen 2 days ago and nothing else since then. Patient also com [place] of a mild sore throat but is drinking fluids normally. She denies any ear pain, nausea, vomiting, diarrhea or dizziness. She admits that her was diagnosed with the flu 2 days ago. Of note, patient has not been on diabetes medications in 6- months due to insurance issues. PMD: none provided HPI: Influenza Time Seen by Provider: 06/04/18 14:41 Chief Complaint: Flu-like Symptoms Chief Complaint (Provider): Flu-like Symptoms History Per: Patient Exam Limitations: no limitations Onset/Duration Of Symptoms: Days Symptoms include: fever, bodyaches, sore throat, cough, nasal congestion. leonidas es: vomiting, diarrhea Past Medical History Reviewed: Historical Data, Nursing Documentation, Vital Signs Vital Signs: Last Vital Signs Temp 100.6 F H 06/04/18 15:11 Pulse 111 H 06/04/18 14:29 Resp 16 06/04/18 14:29 BP 109/71 06/04/18 14:29 Pulse Ox 99 06/04/18 14:29 - Medical History PMH: Diabetes (Type 1) Denies: HIV, Chronic Kidney Disease - Surgical History Surgical History: Appendectomy (1995) - Family History Family History: States: Unknown Family Hx - Social History Current smoker - smoking cessation education provided: No Alcohol: None Drugs: Denies - Immunization History Hx Tetanus Toxoid Vaccination: No Hx Influenza Vaccination: No Hx Pneumococcal Vaccination: No - Home Medications Home Medications: Ambulatory Orders Medication Instructions Recorded RX: Insulin Detemir [Levemir] 5 unit SC QAM #100 unit 04/27/16 RX: Insulin Detemir [Levemir] 7 unit SC QPM #100 unit 04/27/16 Insulin Detemir [Levemir] 20 unit SC DAILY #1 unit 11/15/16 Insulin Lispro [Humalog (Insulin 6 unit SQ TID #1 cartridge 11/15/16 Lispro)] RX: Insulin Aspart [Novolog] 6 units SC TID 11/15/16 Dicyclomine [Bentyl] 20 mg PO Q12 PRN #20 tab 03/24/17 Ondansetron ODT [Zofran ODT] 4 mg PO Q6 PRN #16 odt 03/24/17 Oseltamivir Phosphate [Tamiflu] 75 mg PO BID 5 Days capsule 06/04/18 RX: Ibuprofen [Motrin Tab] 800 mg PO Q6 PRN 7 Days tab 06/04/18 - Allergies Allergies/Adverse Reactions: Allergies Allergy/AdvReac Type Severity Reaction Status Date / Time No Known Allergies Allergy Verified 06/04/18 14:29 Review of Systems ROS Statement: Except As Marked, All Systems Reviewed And Found Negative Constitutional: Positive for: Fever ENT: Positive for: Nose Congestion, Throat Pain. Negative for: Ear Pain Respiratory: Positive for: Cough, Sputum Gastrointestinal: Negative for: Nausea, Vomiting, Diarrhea Neurological: Negative for: Dizziness Physical Exam - Reviewed Nursing Documentation Reviewed: Yes Vital Signs Reviewed: Yes - Physical Exam Appears: Positive for: No Acute Distress Skin: Positive for: Normal Color, Warm Eye Exam: Positive for: Normal appearance, EOMI, PERRL ENT: Positive for: Normal ENT Inspection Cardiovascular/Chest: Positive for: Tachycardia. Negative for: Murmur Respiratory: Positive for: Normal Breath Sounds. Negative for: Respiratory Distress Gastrointestinal/Abdominal: Positive for: Normal Exam, Soft. Negative for: Tenderness Neurologic/Psych: Positive for: Alert, Oriented Medical Decision Making Medical Decision Making: Time: 14:52 Plan: --BMP --ED urine --CBC --IV Fluids, normal saline --Tamiflu 75 mg PO x 1 --Tyelnol 975 mg PO x 1 Scribe Attestation: Documented by, Alessia Marques acting as a scribe for Alexandria Simons PA-C. Provider Scribe Attestation: All medical record entries made by the Scribe were at my direction and personally dictated by me. I have reviewed the chart and agree that the record accurately reflects my personal performance of the history, physical exam, medical decision making, and the department course for this patient. I have also personally directed, reviewed, and agree with the discharge instructions and disposition. Re-evaluated: fever defervesced to 100.2F, feeling better, stable for d/c home. - Laboratory Results Result Diagrams: 06/04/18 15:10 06/04/18 15:10 - ECG O2 Sat by Pulse Oximetry: 99 (RA) Pulse Ox Interpretation: Normal Disposition - Clinical Impression Clinical Impression: Influenza - Patient ED Disposition Is Patient to be Admitted: No - Disposition Referrals: [facility] [Outside] Disposition: Routine/Home Disposition Time: 16:53 Condition: STABLE Additional Instructions: F/u with primary care doctor for general care. Take Tamiflu to reduce your symptoms but this is not an antibiotic. Take Tylenol and Ibuprofen for the body aches and fevers. Get lots of rest and drink plenty of fluids. Avoid close contact with others as you are very contagious. Prescriptions: RX: Ibuprofen [Motrin Tab] 800 mg PO Q6 PRN 7 Days tab PRN Reason: Fever >100.4 F Oseltamivir Phosphate [Tamiflu] 75 mg PO BID 5 Days capsule Instructions: Flu, Adult (DC) Forms: [employer] (Danish), [facility] ED School/Work Excuse Print Language: PRYDEINIG
[2018-06-04 16:10] LABS: BASO # 0.1 K/uL (0.0-0.2); BASO % 0.9 % (0.0-2.0); EOS # 0.2 K/uL (0.0-0.7); EOS % 2.2 % (0.0-4.0); HEMOGLOBIN 13.1 g/dL (12.0-16.0); LYMPH # 0.8 K/uL (1.0-4.3); MEAN CORPUSCULAR HEMOGLOBIN 29.1 pg (27.0-31.0); MEAN CORPUSCULAR HGB CONC 33.5 g/dL (33.0-37.0); MEAN PLATELET VOLUME 9.8 fl (7.2-11.7); MONO # 0.7 K/uL (0.0-0.8); MONO % 9.1 % (0.0-10.0); NEUT % 77.8 % (50.0-75.0); NRBC % 0.1 % (0.0-0.0); RBC 4.5 Mil/uL (3.80-5.20); RED CELL DISTRIBUTION WIDTH 12.2 % (11.5-14.5); WHITE BLOOD COUNT 7.7 K/uL (4.8-10.8)
[2018-06-04 16:16] LABS: BLOOD UREA NITROGEN 15 mg/dl (7-17); CALCIUM 8.6 mg/dL (8.4-10.2); GFR NON-AFRICAN AMERICAN > 60
[2018-06-04 17:02] VITALS: BP 121/72; PULSE 87; RESP 18; TEMP 99.5
[2018-06-16 05:54] VITALS: O2SAT 99
== END 2018-06-04 17:06 | disposition home or self-care (01) ==
LOC: H.ER 14:14
DX: J11.1 Influenza due to unidentified influenza virus with other respiratory manifestations (principal); E11.9 Type 2 diabetes mellitus without complications; Z79.4 Long term (current) use of insulin
CPT/HCPCS: 80048; 81025; 82948; 85025; 96360; 99283; J7030